=== PATIENT | female | born 1960 | race Caucasian/White ===

== ENCOUNTER 2017-06-12 23:27 | Emergency (ER) | payer MEDICARE, MEDICAID ==
[~2017-06-12] VITALS: Ht 157.5 cm; Wt 50.3 kg
--- NOTE | 2017-06-12 23:32 | ER Report ---
History and Physical Time Seen By MD: 23:32 Hx. of Stated Complaint: FELL DOWN A FLIGHT OF STAIRS HPI/ROS CHIEF COMPLAINT: Fall HISTORY OF PRESENT ILLNESS: After a fall Rattled down 12 steps bouncing off the muro per EMS arrives in c-collar with abrasions to left face and left scalp panpositive ROS is normal baseline, screams at baseline per caregiver. Per EMS palpation produced no tenderness. CSM intact and no deformities. REVIEW OF SYSTEMS: Respiratory: No cough, no dyspnea. Cardiovascular: No chest pain, no palpitations. Gastrointestinal: No vomiting, no abdominal pain. Musculoskeletal: No back pain. Allergies: Coded Allergies: No Known Drug Allergies (Verified , 06/12/17) Home Meds Active Scripts Hydrocodone Bit/Acetaminophen (NORCO 5-325 TABLET) 1 Each Tablet, 1 EACH PO Q4- 6H Y for PAIN, #12 TAB Prov:ADWOA DOUGLAS CRM COORDINATOR 03/28/17 Reported Medications Diazepam (DIAZEPAM) 5 Mg Tablet, 5 MG PO QHS Y for prn, #5 TAB 04/02/16 Melatonin (MELATONIN) 5 Mg Tablet, 5 MG PO 04/02/16 Calcium Carbonate (CALCIUM) 600 Mg Tablet, 600 MG PO 04/02/16 Acetaminophen (ACETAMINOPHEN) 500 Mg Tablet, 500 MG PO Q4-6H, TAB 04/02/16 Lamotrigine (LAMOTRIGINE) 100 Mg Tablet, 100 MG PO BID 01/04/15 Imipramine Pamoate (Tofranil Pm) 150 Mg Capsule, 150 MG PO QPM, 0 Refills 03/22/11 Levothyroxine Sodium (Synthroid/Levothroid) 0.025 Mg Tab, 0.125 MG PO QDAY, 0 Refills 03/22/11 Fluoxetine Hcl (Prozac) 40 Mg Capsule, 60 MG PO QDAY, #20 0 Refills 03/22/11 Phenobarbital (Phenobarbital) 64.8 Mg Tablet, 64.8 MG PO BID, 0 Refills 03/22/11 Hx Smoking: No Smoking Status: Never Smoker Hx Substance Use Disorder: No Hx Alcohol Use: No Constitutional Vital Sign - Last 24 Hours 06/12/17 06/12/17 06/12/17 06/13/17 23:29 23:42 23:57 00:42 Temp 97.8 Pulse 72 66 78 67 Resp 20 B/P (MAP) 137/97 Pulse Ox 90 94 96 O2 Delivery Room Air 06/13/17 00:47 Pulse 68 B/P (MAP) 116/92 (100) Pulse Ox 97 Physical Exam General Appearance: [The patient is alert, has no immediate need for airway protection and no signs of toxicity.] Behavior is at baseline per caregiver. She is in a c-collar Eyes: Pupils equal and round no pallor or injection. ENT, Mouth: Mucous membranes are moist. Respiratory: There are no retractions, lungs are clear to auscultation. Cardiovascular: Regular rate and rhythm. No murmurs gallops or rubs Gastrointestinal: Abdomen is soft and non tender, no masses, bowel sounds normal. Neurological: Grossly normal Skin: Abrasion left zygomatic arch and left parietal scalp both under 2 cm no active using no lacerations Musculoskeletal: C-collar on neck midline nontender exam unreliable Extremities are nontender, nonswollen and have full range of motion. All bony prominences palpated and no bony tenderness. Exception is lumbar spine. Minimal tenderness with palpation. DIFFERENTIAL DIAGNOSIS: After history and physical exam differential diagnosis was considered for compression fracture lumbar spine, C-spine fracture unlikely , rib fracture or pelvic fracture unlikely. No signs of compartment syndrome or other dangerous or serious process. No signs of intra-abdominal or solid organ injury. Medical Decision Making EKG/Imaging Imaging Images were reviewed and discussed radiology reports with patient and caregiver. ED Course/Re-evaluation ED Course Pain was controlled with fentanyl and Zofran was given for nausea prevention. Decision to Disposition Date: Jun 13, 2017 Decision to Disposition Time: 01:41 Depart Departure Latest Vital Signs Vital Signs Date Time Temp Pulse Resp B/P (MAP) Pulse Ox O2 Delivery O2 Flow Rate FiO2 06/13/17 00:47 68 116/92 (100) 97 06/12/17 23:29 97.8 20 Room Air Impression: Primary Impression: Fall Condition: Condition Unchanged Disposition: HOME OR SELF-CARE Referrals: JESSE TAPIA (PCP) Patient Instructions: Fall Prevention (ED) Problem Qualifiers Primary Impression: Fall Encounter type: initial encounter Qualified Codes: W19.XXXA - Unspecified fall, initial encounter RENAE BALBUENA MD Jun 12, 2017 23:32
[2017-06-12] MEDS ORDERED: BACITRACIN OINT 0.9 GM PKT TP ONE (23:35)
[2017-06-12] MEDS ORDERED: ONDANSETRON 4 MG/2 ML VIAL IVP ONE (23:35)
[2017-06-12] MEDS ORDERED: fentaNYL CITR 100 MCG/2 ML AMP IVP ONE (23:35)
--- NOTE | 2017-06-13 01:01 | RADIOLOGY IMAGING REPORT ---
FACILITY: [facility] PATIENT NAME: Destiny Kendall : 1960 MR: [id number] V: [id number] EXAM DATE: ORDERING PHYSICIAN: RENAE BALBUENA TECHNOLOGIST: Location: [facility] Patient: Destiny Kendall : 1960 Visit/Account:[id number] Date of Sevice: 06/13/2017 INDICATION: Fall. EXAM DATE: 06/13/2017 12:36 AM COMPARISON: None. FINDINGS: 3 views cervical spine. Mineralization is normal. No acute alignment abnormality or fracture. Modera te multilevel spondylosis with exaggerated cervical lordosis. Soft tissues are unremarkable. IMPRESSION: No apparent acute osseous abnormality of the cervical spine. Report Dictated By: Rory Ro MD at 06/13/2017 12:53 AM Report E-Signed By: Rory Ro MD at 06/13/2017 12:56 AM WSN:[id number]
--- NOTE | 2017-06-13 01:14 | RADIOLOGY IMAGING REPORT ---
FACILITY: [facility] [place] PATIENT NAME: Destiny Kendall : 1960 MR: [id number] V: [id number] EXAM DATE: ORDERING PHYSICIAN: RENAE BALBUENA TECHNOLOGIST: Location: [facility] [place] Patient: Destiny Kendall : 1960 Visit/Account:[id number] Date of Sevice: 06/12/2017 CHEST SINGLE AP 06/12/2017 23:33 hours. HISTORY: Fall. Evaluate for fracture. COMPARISON: Concurrent cervical spine, lumbar spine, and pelvis x-rays. No prior chest CT. TECHNIQUE: Portable AP view of the chest. FINDINGS: Tubes/lines/hardware: None. Pulmonary: There is subsegmental atelectasis or scarring at the right greater than left lung base. Th ere is no pneumothorax or pleural effusion. Cardiomediastinal: The cardiac silhouette is at the upper limits of normal. The mediastinal silhouett e is within normal limits. Bones/soft tissues: No acute osseous abnormality. There is degenerative change of the right acromiocl avicular joint and of the bilateral glenohumeral joints. There is a healed third posterolateral right rib fracture. The visible abdomen is normal. IMPRESSION: 1. Subsegmental bibasilar atelectasis versus scarring. Report Dictated By: Rossy Valadez at 06/13/2017 1:08 AM Report E-Signed By: Rossy Valadez at 06/13/2017 1:10 AM WSN:[id number]
--- NOTE | 2017-06-13 01:17 | RADIOLOGY IMAGING REPORT ---
FAC[place] [facility] [place] PATIENT NAME: Destiny Kendall : 1960 MR: [id number] V: [id number] EXAM DATE: ORDERING PHYSICIAN: RENAE BALBUENA TECHNOLOGIST: Location: [facility] - [place], [place] Patient: Destiny Kendall : 1960 Visit/Account:[id number] Date of Sevice: 06/12/2017 LUMBAR SPINE 2 OR 3 VIEW HISTORY: Fall. Evaluate for fracture. History of fractured pelvis. COMPARISON: Lumbar spine x-rays 01/04/2015. TECHNIQUE: AP and lateral views of the lumbar spine. FINDINGS: There are 5 nonrib-bearing lumbar type vertebral bodies. There is mild physiologic wedging of L1, unchanged. There is stable subtle concave deformity of the superior endplate of L3 and L4, unc hanged. There is subtle sclerosis of the superior endplate of L2 that is new. It is visible only on t he lateral view and may be projectional. The sacroiliac joints are patent without widening. There are healing fractures of the superior and inferior left pubic rami. The superior pubic ramus fr acture was acute in March 2017. IMPRESSION: 1. No acute osseous abnormality of the lumbar spine. Report Dictated By: Rossy Valadez at 06/13/2017 1:10 AM Report E-Signed By: Rossy Valadez at 06/13/2017 1:14 AM WSN:[id number]
--- NOTE | 2017-06-13 01:20 | RADIOLOGY IMAGING REPORT ---
FACILITY: [facility] PATIENT NAME: Destiny Kendall : 1960 MR: [id number] V: [id number] EXAM DATE: ORDERING PHYSICIAN: RENAE BALBUENA TECHNOLOGIST: Location: [facility] - [place] Patient: Destiny Kendall : 1960 Visit/Account:[id number] Date of Sevice: 06/12/2017 PELVIS HISTORY: Fall. History of pelvic fracture. COMPARISON: Left hip x-rays 03/28/2017. TECHNIQUE: AP view of the pelvis. FINDINGS: There are healing superior and inferior pubis ramus fractures on the left. The superior pub ic ramus fracture extends to involve the medial acetabulum There is no acute fracture. The sacral gabi nts are patent without widening. There is no pubic diastases. There is a large amount of stool throughout colon. No obstruction. IMPRESSION: 1. Healing superior and inferior pubic ramus fractures on the left. No acute fracture. 2. Large stool burden, compatible with constipation. Report Dictated By: Rossy Valadez at 06/13/2017 1:14 AM Report E-Signed By: Rossy Valadez at 06/13/2017 1:16 AM WSN:[id number]
[2017-06-13 01:30] VITALS: BP 107/76
== END 2017-06-13 01:52 | disposition home or self-care (01) ==
LOC: ER 23:31
DX: S00.81XA Abrasion of other part of head, initial encounter (principal); S00.01XA Abrasion of scalp, initial encounter; W10.9XXA Fall (on) (from) unspecified stairs and steps, initial encounter; J98.11 Atelectasis
CPT/HCPCS: 71010; 72040; 72100; 72170; 96374; 96375; 99284; A9270; J2405; J3010; C9399

== ENCOUNTER → 2017-06-12 | Outpatient (CLI) | payer MEDICARE, MEDICAID ==
[~2017-06-12] MED LIST: ACET-2043 PO; CALC600T63 PO; DIAZ-308 PO; FLUO40CA76 PO; HYDR-4309 PO; LAMO100T52 PO; LEV25 PO; LIT300CAP PO; MED150I IM; MELA1TAB27 PO; MELA5TAB6 PO; [UNRECOGNIZED DRUG - CODE] PO; [UNRECOGNIZED DRUG - CODE] PO
== END ==
LOC: AMB 22:56
PROVIDERS: ATTEND Nurse Practitioner
DX: M54.2 Cervicalgia (principal); M54.9 Dorsalgia, unspecified; R51 Headache; S00.81XA Abrasion of other part of head, initial encounter; S90.512A Abrasion, left ankle, initial encounter; S90.511A Abrasion, right ankle, initial encounter; S60.512A Abrasion of left hand, initial encounter; S60.511A Abrasion of right hand, initial encounter; W10.9XXA Fall (on) (from) unspecified stairs and steps, initial encounter
CPT/HCPCS: A0425; A0427

== ENCOUNTER → 2017-10-29 | Outpatient (CLI) | payer MEDICARE, MEDICAID ==
--- NOTE | 2017-10-30 10:42 | RADIOLOGY IMAGING REPORT ---
FACILITY: [facility] - [place] PATIENT NAME: MARANDA SANDHU : [id number] MR: [id number] V: [id number] EXAM DATE: ORDERING PHYSICIAN: JESSE TAPIA TECHNOLOGIST: Gayle Kaur PROCEDURE:BILATERAL DIGITAL SCREENING MAMMOGRAM WITH CAD ASSISTED INTERPRETATION & 3D TOMOSYNTHESIS COMPARISON:Prior mammograms 10/28/16, 10/26/15, 10/18/14, 10/28/13, 10/14/13, 10/29/12. INDICATIONS:SCREENING FINDINGS: Small amount of fibroglandular tissue is seen throughout the breasts. The parenchymal pattern has remained stable allowing for difference in mammographic technique & patient positioning. There is no evidence of malignant appearing mass, malignant appearing calcifications or other secondary sign of malignancy in either breast. DIAGNOSTIC CATEGORY 1--NEGATIVE. RECOMMENDATIONS: ROUTINE MAMMOGRAM AND CLINICAL EVALUATION. IMPRESSION: BIRADS 1: Negative No significant abnormality is seen. Dictated by: Chitra Romeo M.D. on 10/29/2017 at 14:26 Transcribed by: KIRILL on 10/29/2017 at 15:01 Approved by: Chitra Romeo M.D. on 10/30/2017 at 10:41 [facility]
== END ==
LOC: MAMO 00:58
PROVIDERS: ATTEND Nurse Practitioner Family
DX: Z12.31 Encounter for screening mammogram for malignant neoplasm of breast (principal)
CPT/HCPCS: 77063; 77067

== ENCOUNTER → 2018-08-21 | Outpatient (CLI) | payer MEDICARE, MEDICAID ==
[~2018-08-21] MED LIST changes: -HYDR-4309 PO; +HYDR-653 PO
--- NOTE | 2018-08-21 16:07 | RADIOLOGY IMAGING REPORT ---
FACILITY: [facility] PATIENT NAME: Destiny Kendall : 1960 MR: [id number] V: [id number] EXAM DATE: ORDERING PHYSICIAN: JESSE TAPIA TECHNOLOGIST: Location: [facility] Patient: Destiny Kendall : 1960 Visit/Account:[id number] Date of Sevice: 08/21/2018 DEXA Scan Clinical history: Osteopenia. Comparison: DEXA scan from 05/12/2017. LUMBAR SPINE: The bone mineral density (BMD) measured from L1-L4 correlates with a Z-score -2.2 and a T-score of - 2.5 which is osteoporosis as defined by the World Health Organization. The corresponding risk of fra cture in the lumbar spine is I compared with a young adult reference population. This value has incr ease by 4.1 % since the prior study. More than 5% change is considered significant. HIP: Bone mineral density (BMD) measured in the Left femoral neck region correlates with a Z-score -0.9 an d a T-score of -2.3 which is osteopenia as defined by the World Health Organization. The correspon ding risk of fracture in the hip is increase compared with a young adult reference population. The to moustapha hip value has increased by 3.5 % since the prior study. More than 5% change is considered signif icant. Bone mineral density (BMD) measured in the Femoral Neck region measures 0.722 g/cm2. IMPRESSION: 1. Lumbar spine: Osteoporosis. There has been increase in the bone mineral density since the previo us exam. 2. Left femoral neck region: Osteopenia. There has been Inc. in the bone mineral density of the tot al hip since the previous exam. 3. Femoral Neck: Bone Mineral Density is 0.722 g/cm2 The next DEXA scan of this patient should include the following sites: L1-L4 and the left hip. FRAX? WHO Fracture Risk Assessment Tool link: <http://www.shef.ac.uk/FRAX/tool.jsp?locationValue=9> PLEASE NOTE: 1) The World Health Organization defines low BMD as follows: T-score Normal > -1 Osteopenia < -1 and > -2.5 Osteoporosis < -2.5 without fractures Established osteoporosis < -2.5 with fractures 2) In general, you may wish to consider: Diagnosis Treatment Follow-up DEXA Normal BMD Prevention 2-3 years Osteopenia Prevention/therapy 1-2 years Osteoporosis Therapy Yearly 3) Fracture risk estimated from the T-score is more accurate for vertebral fractures (often spontane ous) than for hip fractures. Report Dictated By: David Muse at 08/21/2018 3:58 PM Report E-Signed By: David Muse at 08/21/2018 4:02 PM WSN:[id number]
== END ==
LOC: RAD 02:49
PROVIDERS: ATTEND Nurse Practitioner Family
DX: M85.80 Other specified disorders of bone density and structure, unspecified site (principal)
CPT/HCPCS: 77080

== ENCOUNTER → 2018-10-27 | Outpatient (CLI) | payer MEDICARE, MEDICAID ==
[~2018-10-27] MED LIST changes: +DENOSUMAB 60 MG/1 ML SYR SUBQ ONE
[2018-10-27 10:58] VITALS: BP 104/62
== END ==
LOC: SPU 08:29
PROVIDERS: ATTEND Nurse Practitioner Family
DX: M81.0 Age-related osteoporosis without current pathological fracture (principal)
CPT/HCPCS: 96372; J0897

== ENCOUNTER → 2018-11-02 | Outpatient (CLI) | payer MEDICARE, MEDICAID ==
[~2018-11-02] MED LIST changes: -DENOSUMAB 60 MG/1 ML SYR SUBQ ONE
--- NOTE | 2018-11-03 10:40 | RADIOLOGY IMAGING REPORT ---
FACILITY: [facility] PATIENT NAME: MARANDA SANDHU : [id number] MR: [id number] V: [id number] EXAM DATE: ORDERING PHYSICIAN: JESSE TAPIA TECHNOLOGIST: Maday Wolff PROCEDURE: BILATERAL DIGITAL SCREENING MAMMOGRAM WITH CAD ASSISTED INTERPRETATION & 3D TOMOSYNTHESIS REASON FOR STUDY: Screening. FAMILY HISTORY OF BREAST CANCER: Not known. BREAST PROCEDURES/TREATMENTS: None reported. COMPARISON: Prior mammograms 10/29/17, 10/28/16, 10/26/15, 10/18/14, 10/28/13, 10/14/13. VIEWS OBTAINED: 2D & 3D full field CC & MLO. BREAST DENSITY: The breasts are heterogeneously dense which can obscure small masses. MAMMOGRAM FINDINGS: The parenchymal pattern has remained stable allowing for difference in mammographic technique & patient positioning. IMPRESSION: BIRADS 1: Negative. DIAGNOSTIC CATEGORY 1--NEGATIVE. RECOMMENDATIONS: ROUTINE MAMMOGRAM AND CLINICAL EVALUATION. Dictated by: Chitra Romeo M.D. on 11/02/2018 at 17:29 Transcribed by: KIRILL on 11/03/2018 at 8:14 Approved by: Chitra Romeo M.D. on 11/03/2018 at 10:39 [facility]
== END ==
LOC: MAMO 02:38
PROVIDERS: ATTEND Nurse Practitioner Family
DX: Z12.31 Encounter for screening mammogram for malignant neoplasm of breast (principal)
CPT/HCPCS: 77063; 77067